=== PATIENT | male | born 1960 | race Two or more races ===

== ENCOUNTER 2017-03-26 15:56 | Outpatient (RCR) | payer MEDICARE, OTHER ==
--- NOTE | 2017-03-26 23:32 | Consultation ---
DATE OF CONSULTATION: INFECTIOUS DISEASE CONSULTATION CONSULTING PHYSICIAN: Ramon Zayas M.D. REQUESTING PHYSICIAN: Brandt Franks D.P.M. REASON FOR CONSULTATION: Right first distal phalanx osteomyelitis and possible osteomyelitis of the fifth distal phalanx. Recommendation for antibiotics therapy in hemodialysis patient. HISTORY OF PRESENT ILLNESS: The patient is a 56-year-old male with past medical history of depression, end-stage renal disease, on hemodialysis, and diabetes, who has been evaluated by the dicer operator due to right foot small toe nail infection. The patient had an x-ray of his right foot, which showed some bone destruction in the fifth distal phalanx and he underwent an MRI of the right foot, which showed osteomyelitis of the first distal phalanx of the right foot and possible osteomyelitis of the fifth distal phalanx. The patient symptoms developed in January this year when he went for a trip in [place] and he went hiking and used the stairs where he [place] 200 [place]. He felt some mild pain in his right foot, but no significant skin changes or worsening symptoms. 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 He developed a fracture which was causing some swelling and redness. These prompted him to see dicer operator, which he ordered x-ray and MRI of the foot and showed evidence of osteomyelitis. So, I was consulted for further evaluation and antibiotics management. The patient denied any significant swelling or redness. He has some sensation in his right foot, but cannot feel it completely. There is no open wound or drainage coming out of the toes. His small right foot toe has nail destruction due to infection, but no drainage or pus. PAST MEDICAL HISTORY: Significant for diabetes, stroke, obesity, latent TB, incomplete right bundle branch block, hyperlipidemia, hypertension, gastroesophageal reflux disease, end-stage renal disease, on hemodialysis, diabetes with complication, DVT, and coronary artery disease. PAST SURGICAL HISTORY: He had a coronary stent placement with angiogram in 2011 and colonoscopy in 2013. ALLERGIES: He has no known drug allergy. SOCIAL HISTORY: Denying any alcohol abuse. No drug abuse and no tobacco. Lives with family at home. Unemployed at this point. FAMILY HISTORY: Significant for brain cancer and diabetes. REVIEW OF SYSTEMS: A 14-point of system reviewed were all negative apart from the one I mentioned above in my History and Physical. PHYSICAL EXAMINATION: GENERAL: A middle-aged male, obese, up in bed, awake, alert, oriented, and not in distress. HEENT: Normocephalic and atraumatic. Pupils reactive to light. Moist oral mucosa. No exudate. NECK: Supple. No lymphadenopathy. CARDIOVASCULAR: Regular rate and rhythm. No murmur. LUNGS: Clear bilaterally. Diminished breathing sounds at the bases. ABDOMEN: Soft, obese, nontender, and nondistended. Positive bowel sounds. No hepatosplenomegaly or ascites. EXTREMITY: No edema or cyanosis. Right big toe mild redness. No swelling or local tenderness. Right foot small toe with destructive change in the nails, but no open wounds or drainage. No redness or swelling. LABORATORY DATA: No recent laboratories done. RADIOLOGY: MRI of the right foot showed osteomyelitis of the first distal phalanx of the right foot and osteomyelitis versus osteitis of the fifth distal phalanx, osteitis of the first proximal phalanx and second through fourth distal phalanges may represent ischemic osteitis, moderate osteoarthritis of the first interphalangeal joint, first and second metatarsophalangeal joint, and third and fourth tarsometatarsal joints, and diabetic myopathy. ASSESSMENT AND PLAN: 1. Osteomyelitis of the first distal phalanx of the right foot with possible osteomyelitis of the fifth distal phalanx. I recommend treatment with antibiotics for six weeks. We will cover him empirically with vancomycin and cefepime, which can be given with hemodialysis. I will arrange for outpatient treatment and follow up of laboratories including vancomycin troughs and weekly labs. The patient to continue follow up with dicer operator as needed. 2. Diabetes with complication. Recommend tight glycemic control to keep blood glucose between 80 to 120 and hemoglobin A1c less than 7. 3. End-stage renal disease, on hemodialysis. Continue hemodialysis as per renal. Monitor laboratory. Thank you for this interesting consult. ID will continue to follow with you. Please feel free to call with any question. Ramon Zayas M.D. DR: ROOSEVELT JOB#: [id number] CC:
== END 2017-04-01 | disposition home or self-care (01) ==
LOC: WCC 15:56
DX: L97.514 Non-pressure chronic ulcer of other part of right foot with necrosis of bone (principal); E11.621 Type 2 diabetes mellitus with foot ulcer; E11.42 Type 2 diabetes mellitus with diabetic polyneuropathy; G99.0 Autonomic neuropathy in diseases classified elsewhere; M86.671 Other chronic osteomyelitis, right ankle and foot; E11.22 Type 2 diabetes mellitus with diabetic chronic kidney disease; N18.6 End stage renal disease; Z79.4 Long term (current) use of insulin; M86.9 Osteomyelitis, unspecified; I51.9 Heart disease, unspecified
CPT/HCPCS: 82962; G0277; G0463

== ENCOUNTER 2017-04-02 06:00 | Outpatient (RCR) | payer MEDICARE, OTHER | END 2017-05-02 | disposition home or self-care (01) | LOC: WCC 06:00 | DX: L97.514 Non-pressure chronic ulcer of other part of right foot with necrosis of bone (principal); E11.621 Type 2 diabetes mellitus with foot ulcer; M86.171 Other acute osteomyelitis, right ankle and foot; E11.22 Type 2 diabetes mellitus with diabetic chronic kidney disease; N18.6 End stage renal disease; I51.9 Heart disease, unspecified; Z79.4 Long term (current) use of insulin; Z95.5 Presence of coronary angioplasty implant and graft | CPT/HCPCS: 82962; G0277 ==

== ENCOUNTER → 2017-07-23 | Emergency (ER) | payer MEDICARE, OTHER ==
[~2017-07-23] VITALS: Ht 175.3 cm; Wt 99.8 kg
[2017-07-23 15:49] VITALS: BP 170/79
--- NOTE | 2017-07-23 23:15 | Emergency Room Report ---
History of Present Illness General Chief Complaint: Skin Rash/Abscess Present Illness Allergies: Coded Allergies: No Known Allergies (Unverified , 07/23/17) Nursing Documentation-PMH Hx Cardiac Problems: Yes - stent Hx Hypertension: Yes Hx Diabetes: Yes Hx Dialysis: Yes Physical Exam Vital Signs Date Time Temp Pulse Resp B/P (MAP) Pulse Ox O2 Delivery O2 Flow Rate FiO2 07/23/17 15:49 97.7 69 18 170/79 98 Room Air Medical Decision Making Diagnostic Impression: Primary Impression: Rash and other nonspecific skin eruption ER Course patient left prior to sound art instructor or MD evaluation Last Vital Signs Date Time Temp Pulse Resp B/P (MAP) Pulse Ox O2 Delivery O2 Flow Rate FiO2 07/23/17 15:49 97.7 69 18 170/79 98 Room Air Status: unchanged Disposition: LEFT W/OUT BEING SEEN Condition: Stable Referrals: BIBI SANDOVAL (PCP) MOR LINK M.D. Jul 23, 2017 23:15
== END | disposition home or self-care (01) ==
LOC: EMR 19:00
DX: R21 Rash and other nonspecific skin eruption (principal); Z53.21 Procedure and treatment not carried out due to patient leaving prior to being seen by health care provider
CPT/HCPCS: 99281